=== PATIENT | female | born 1960 | race Caucasian/White ===

== ENCOUNTER 2017-04-28 13:34 | Emergency (ER) | payer BC, MEDICARE ==
[~2017-04-28] VITALS: Ht 152.4 cm; Wt 79.4 kg
[~2017-04-28 13:34] MED LIST: ALBUTEROL-200 PUFFS/ IH; ALBUTEROL2.5 MG/NEB IN; ALDACTONE25 MG PO; CLINDAMYCIN HC300 MG PO; EFFER-K20 MEQ PO; FLONASE 50 MCG16 GM; HYDROCHLOROTH12.5 M1 PO; K-DUR 2020 MEQ PO; KLOR-CON 1010 MEQ PO; LASIX 40MG. TAB40 MG PO; LASIX40 MG PO; LISINOPRIL5 MG PO; LORTAB 500 MG-11 TAB PO; MEDROL 4MG. DOSE4 MG PO; METOPROLOL SUCC25 M2 PO; METOPROLOL25 MG PO; MUCINEX DM1 TER PO; NEXIUM20 MG PO; NORCO 325 MG-101 TAB PO; NYSTATIN 1100000 UNI MT; NYSTATIN SU60 ML/BOT PO; OMNICEF 300 MG300 MG PO; PREDNICOT20 MG PO; PREDNISONE 20MG20 MG PO; SYMBICORT 10.10.2 ML IH; SYMBICORT1 AE1 IH; VENTOLIN H0.09 MG/AC IH; VICODIN 5/500 T1 TAB PO; ZYRTEC-D TABLE1 EACH PO; [UNRECOGNIZED DRUG - OTHER] PO
--- NOTE | 2017-04-28 14:06 | Emergency Room Report ---
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 PT REPORTS RIGHT ARM AND KNEE PAIN. 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 N Clinical Suspician of Infection? N Mental Status: 1 - Regular (Normal Baseline) Sepsis Risk:Possible Sepsis Risk Have you (or family members/close friends) recently traveled outside the [place]? N If Yes, where/when: Have you had exposure to infectious disease within the past month? N TB? Other? Specify: Source patient, RN notes reviewed, family, EMS, old records Exam Limitations no limitations Comment trip type fall with acute injury to wrist and knee with no loc or other c/o Cardiac Chest Pain Chest pain indicative of cardiac No Timing/Duration this evening Severity moderate ALLERGIES Coded Allergies: levofloxacin (From Levaquin) (Intermediate, I-RASH 01/12/17) NSAIDS (Non-Steroidal Anti-Inflamma (Mild, STOMACH PAIN 01/12/17) erythromycin base (Mild, STOMACH PAIN 01/12/17) amoxicillin (From AUGMENTIN) (I-HIVES 01/12/17) clavulanic acid (From AUGMENTIN) (I-HIVES 01/12/17) sulfamethoxazole (From SEPTRA) (I-HIVES 01/12/17) trimethoprim (From SEPTRA) (I-HIVES 01/12/17) Home Medications Reported Medications Esomeprazole Magnesium (Nexium) 20 MG PO DAILY Hydrochlorothiazide (Hydrochlorothiazide 12.5MG) 25 MG PO DAILY HYDROCODONE/ACETAMINOPHEN ([place] 10-325 Tablet) 1 TAB PO Q4HP PRN PAIN Furosemide (Lasix 40MG) 40 MG PO BID Potassium Chloride (K-Dur) 40 MEQ PO TID #120 GUAIFENESIN/DEXTROMETHORPHAN (Mucinex Dm ER 1,200-60 MG Tab) 1 TAB PO BID Metoprolol Succinate 25 MG PO QHS #30 Fluticasone Propionate (Flonase 50 Mcg Nasal [place]) 1 SPRAY NA BID #16 ALBUTEROL (Ventolin Hfa) 1 PUFF IH Q6H6 History Medical History General CAD? No Angina: Yes [place]: No Hypertension? Yes Hyperlipidemia? Yes CHF? Yes DVT? No PE? No COPD? Yes Asthma? Yes Anemia? No GERD? No Gastric ulcers? No GI Bleed? No Hernia? No Thyroid Problems? No Hypothyroidism? No CVA? No Seizures? No Diabetes? No Renal Insuffiency? No End Stage Renal Disease? No UTI? No Stones? No BPH? No GB Disease: No Nephritic Syndrome? No Asplenia? No Hepatitis? No Sickle Cell Disease? No Arthritis? Yes Migraines? No Cataracts? No Glaucoma? No MRSA? No HIV? No TB? No Anxiety? No Cancer? No Site: CERVIX More? 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 Respiratory denies cough, denies shortness of breath, denies wheezing Cardiovascular denies chest pain, denies palpitations, denies syncope Gastrointestinal denies abdominal pain, denies diarrhea, denies vomiting Genitourinary denies: dysuria, frequency, hesitancy, hematuria. Musculoskeletal see HPI, denies back pain, joint pain, joint swelling, denies neck pain Skin denies rash Psychiatric/Neurological denies headache, denies seizure Physical Exam Vital Signs Vital Signs Date Time Temp Pulse Resp B/P Pulse O2 O2 Flow FiO2 Ox Delivery Rate 04/28 1615 98.6 94 20 123/78 90 04/28 1444 93 20 118/81 92 04/28 1429 20 04/28 1335 99.2 92 20 129/79 92 2 - WBC >12,000 or <4,000 or 10% bands? 2 or more SIRS Criteria Met? B/P:123/78 MAP:95 Creatinine >2.0? UA output<0.5ml/kg/hr for 2 hrs? Platelet count >100,000? Lactate >2.0mmol/1? INR >1.2 or PTT > than 60 sec? Evidence of Organ Dysfunction? Provider documented clinical suspician of infection? N Sepsis Criteria Count: 2 Sepsis Risk: Possible Sepsis Risk General Appearance no apparent distress Eye Exam - bilateral eye PERRL, bilateral eye EOMI Ear, Nose, Throat normal ENT inspection Neck non-tender Respiratory Status No: respiratory distress. Cardiovascular regular rate/rhythm Peripheral Pulses Pulses normal Yes Gastrointestinal soft Extremities no calf tenderness, pelvis stable, swelling, deformity to rt wrist with neurovascular ok and knee with no gross deformity but has pain with wt bearing Strength 4 Upper Ext (L), 4 Upper Ext (R), 4 Lower Ext (L), 4 Lower Ext (R) Neurologic alert, sleep manager II-XII nml as tested, no motor/sensory deficits Reflexes Reflexes normal No Mental status normal mood/affect Skin intact Medical Decision Making LABS/Meds/Orders Pt receiving controlled substance in ED? No Results/Orders Current Medication Orders Sig/Kamaljit Start time Last Medication Dose Route Stop Time Status Admin Morphine Sulfate 4 MG 04/28 1430 CAN IV Morphine Sulfate 4 MG ONCE ONE 04/28 1430 DC 04/28 IV 04/28 1431 1429 Ondansetron HCl 4 MG ONCE ONE 04/28 1430 DC 04/28 IV 04/28 1431 1429 Morphine Sulfate 0 .STK-MED ONE 04/28 1418 DC .ROUTE Ondansetron HCl 0 .STK-MED ONE 04/28 1418 DC .ROUTE Sodium Chloride 10 ML PRN PRN 04/28 1415 AC IV 04/29 1406 Orders Procedure Date/time Status DIET-NOTHING BY MOUTH 04/[address] SCAN REQ 04/28 1443 Complete IV SALINE LOCK 04/28 1406 Active XRAY/CT/US XRAY/CT/US 1 XRAY forearm, knee, pelvis, wrist XR interpretation by reviewed by me Xray Results abnormal (wrist fx) XRAY/CT/US 2 CT other (wrist ) CT interpretation by discussed w/radiologist Time results known: 1622 CT Results abnormal (see report) Procedures Orthopedic/Inj/Splint IV Sedation Airway Assessment IV Sedation used? No Neck Extension: Normal Dentition: Intact Modified Mallampati Class: MP Class II ASA prior to sedation per Dr: Herminio Ortho Proc/Injections/Splints Risks/benefits discussed with pt/guardian? Yes IV conscious sedation No Post reduction xrays completed and anatomic No Hand-Made Type orthoglass Splint wrist Pre-Proc Neuro Vasc Exam normal Post-Proc Neuro Vasc Exam unchanged from pre-exam Complications none Departure Departure Time of Disposition 1624 Disposition DC Home or Self Care(routine) Clinical Impression Primary Impression: Wrist fracture, right Qualifiers: Encounter type: initial encounter Fracture type: closed Qualified Code: S62.101A - Fracture of unspecified carpal bone, right wrist, initial encounter for closed fracture Secondary Impressions: Right knee sprain Qualifiers: Encounter type: initial encounter Involved ligament of knee: unspecified ligament Qualified Code: S83.91XA - Sprain of unspecified site of right knee, initial encounter Condition STABLE Referrals Saul Fowler MD Patient Instructions DI for Wrist Fracture Additional Instructions call ortho in am and use meds as needed Discharge Counseling Counseled pt/family regarding diagnosis, test results, medications/RX, follow up needs Prescriptions Current Visit Scripts HYDROCODONE/ACETAMINOPHEN ([place] 5-325 Tablet) 1 TAB PO Q6HP PRN pain #10 TAB ED Critical Care Critical Care No at 1629
--- NOTE | 2017-04-28 14:06 | Emergency Room Report ---
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 PT REPORTS RIGHT ARM AND KNEE PAIN. 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 N Clinical Suspician of Infection? N Mental Status: 1 - Regular (Normal Baseline) Sepsis Risk:Possible Sepsis Risk Have you (or family members/close friends) recently traveled outside the [place]? N If Yes, where/when: Have you had exposure to infectious disease within the past month? N TB? Other? Specify: Source patient, RN notes reviewed, family, EMS, old records Exam Limitations no limitations Comment trip type fall with acute injury to wrist and knee with no loc or other c/o Cardiac Chest Pain Chest pain indicative of cardiac No Timing/Duration this evening Severity moderate ALLERGIES Coded Allergies: levofloxacin (From Levaquin) (Intermediate, I-RASH 01/12/17) NSAIDS (Non-Steroidal Anti-Inflamma (Mild, STOMACH PAIN 01/12/17) erythromycin base (Mild, STOMACH PAIN 01/12/17) amoxicillin (From AUGMENTIN) (I-HIVES 01/12/17) clavulanic acid (From AUGMENTIN) (I-HIVES 01/12/17) sulfamethoxazole (From SEPTRA) (I-HIVES 01/12/17) trimethoprim (From SEPTRA) (I-HIVES 01/12/17) Home Medications Reported Medications Esomeprazole Magnesium (Nexium) 20 MG PO DAILY Hydrochlorothiazide (Hydrochlorothiazide 12.5MG) 25 MG PO DAILY HYDROCODONE/ACETAMINOPHEN ([place] 10-325 Tablet) 1 TAB PO Q4HP PRN PAIN Furosemide (Lasix 40MG) 40 MG PO BID Potassium Chloride (K-Dur) 40 MEQ PO TID #120 GUAIFENESIN/DEXTROMETHORPHAN (Mucinex Dm ER 1,200-60 MG Tab) 1 TAB PO BID Metoprolol Succinate 25 MG PO QHS #30 Fluticasone Propionate (Flonase 50 Mcg Nasal [place]) 1 SPRAY NA BID #16 ALBUTEROL (Ventolin Hfa) 1 PUFF IH Q6H6 History Medical History General CAD? No Angina: Yes [place]: No Hypertension? Yes Hyperlipidemia? Yes CHF? Yes DVT? No PE? No COPD? Yes Asthma? Yes Anemia? No GERD? No Gastric ulcers? No GI Bleed? No Hernia? No Thyroid Problems? No Hypothyroidism? No CVA? No Seizures? No Diabetes? No Renal Insuffiency? No End Stage Renal Disease? No UTI? No Stones? No BPH? No GB Disease: No Nephritic Syndrome? No Asplenia? No Hepatitis? No Sickle Cell Disease? No Arthritis? Yes Migraines? No Cataracts? No Glaucoma? No MRSA? No HIV? No TB? No Anxiety? No Cancer? No Site: CERVIX More? 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 Respiratory denies cough, denies shortness of breath, denies wheezing Cardiovascular denies chest pain, denies palpitations, denies syncope Gastrointestinal denies abdominal pain, denies diarrhea, denies vomiting Genitourinary denies: dysuria, frequency, hesitancy, hematuria. Musculoskeletal see HPI, denies back pain, joint pain, joint swelling, denies neck pain Skin denies rash Psychiatric/Neurological denies headache, denies seizure Physical Exam Vital Signs Vital Signs Date Time Temp Pulse Resp B/P Pulse O2 O2 Flow FiO2 Ox Delivery Rate 04/28 1615 98.6 94 20 123/78 90 04/28 1444 93 20 118/81 92 04/28 1429 20 04/28 1335 99.2 92 20 129/79 92 2 - WBC >12,000 or <4,000 or 10% bands? 2 or more SIRS Criteria Met? B/P:123/78 MAP:95 Creatinine >2.0? UA output<0.5ml/kg/hr for 2 hrs? Platelet count >100,000? Lactate >2.0mmol/1? INR >1.2 or PTT > than 60 sec? Evidence of Organ Dysfunction? Provider documented clinical suspician of infection? N Sepsis Criteria Count: 2 Sepsis Risk: Possible Sepsis Risk General Appearance no apparent distress Eye Exam - bilateral eye PERRL, bilateral eye EOMI Ear, Nose, Throat normal ENT inspection Neck non-tender Respiratory Status No: respiratory distress. Cardiovascular regular rate/rhythm Peripheral Pulses Pulses normal Yes Gastrointestinal soft Extremities no calf tenderness, pelvis stable, swelling, deformity to rt wrist with neurovascular ok and knee with no gross deformity but has pain with wt bearing Strength 4 Upper Ext (L), 4 Upper Ext (R), 4 Lower Ext (L), 4 Lower Ext (R) Neurologic alert, weather anchor II-XII nml as tested, no motor/sensory deficits Reflexes Reflexes normal No Mental status normal mood/affect Skin intact Medical Decision Making LABS/Meds/Orders Pt receiving controlled substance in ED? No Results/Orders Current Medication Orders Sig/Kamaljit Start time Last Medication Dose Route Stop Time Status Admin Morphine Sulfate 4 MG 04/28 1430 CAN IV Morphine Sulfate 4 MG ONCE ONE 04/28 1430 DC 04/28 IV 04/28 1431 1429 Ondansetron HCl 4 MG ONCE ONE 04/28 1430 DC 04/28 IV 04/28 1431 1429 Morphine Sulfate 0 .STK-MED ONE 04/28 1418 DC .ROUTE Ondansetron HCl 0 .STK-MED ONE 04/28 1418 DC .ROUTE Sodium Chloride 10 ML PRN PRN 04/28 1415 AC IV 04/29 1406 Orders Procedure Date/time Status DIET-NOTHING BY MOUTH 04/[address] SCAN REQ 04/28 1443 Complete IV SALINE LOCK 04/28 1406 Active XRAY/CT/US XRAY/CT/US 1 XRAY forearm, knee, pelvis, wrist XR interpretation by reviewed by me Xray Results abnormal (wrist fx) XRAY/CT/US 2 CT other (wrist ) CT interpretation by discussed w/radiologist Time results known: 1622 CT Results abnormal (see report) Procedures Orthopedic/Inj/Splint IV Sedation Airway Assessment IV Sedation used? No Neck Extension: Normal Dentition: Intact Modified Mallampati Class: MP Class II ASA prior to sedation per Dr: Herminio Ortho Proc/Injections/Splints Risks/benefits discussed with pt/guardian? Yes IV conscious sedation No Post reduction xrays completed and anatomic No Hand-Made Type orthoglass Splint wrist Pre-Proc Neuro Vasc Exam normal Post-Proc Neuro Vasc Exam unchanged from pre-exam Complications none Departure Departure Time of Disposition 1624 Disposition DC Home or Self Care(routine) Clinical Impression Primary Impression: Wrist fracture, right Qualifiers: Encounter type: initial encounter Fracture type: closed Qualified Code: S62.101A - Fracture of unspecified carpal bone, right wrist, initial encounter for closed fracture Secondary Impressions: Right knee sprain Qualifiers: Encounter type: initial encounter Involved ligament of knee: unspecified ligament Qualified Code: S83.91XA - Sprain of unspecified site of right knee, initial encounter Condition STABLE Referrals Saul Fowler MD Patient Instructions DI for Wrist Fracture Additional Instructions call ortho in am and use meds as needed Discharge Counseling Counseled pt/family regarding diagnosis, test results, medications/RX, follow up needs Prescriptions Current Visit Scripts HYDROCODONE/ACETAMINOPHEN ([place] 5-325 Tablet) 1 TAB PO Q6HP PRN pain #10 TAB ED Critical Care Critical Care No at 1628
--- NOTE | 2017-04-28 14:43 | RADIOLOGY REPORT PS360 ---
KNEE-3 VIEWS-RT HISTORY: Post traumatic pain FALL ORDERING PHYSICIAN: Cole Ingram MD PATIENT AGE: 56 years COMPARISON: None FINDINGS: No fracture or dislocation. No lytic or blastic change. Normal mineralization. Minimal osteoarthritic changes are present at the medial compartment No other significant findings IMPRESSION: No acute finding
--- NOTE | 2017-04-28 15:07 | RADIOLOGY REPORT PS360 ---
FOREARM-RT HISTORY: Post traumatic pain and deformity FALL ORDERING PHYSICIAN: Cole Ingram MD PATIENT AGE: 56 years COMPARISON: None FINDINGS: Comminuted mildly displaced fracture involves the distal radius with mild impaction of fracture fragments. Reversed T-shaped fracture is present with a longitudinal component extending in the articular surface and mild widening of the distal fracture fragments. There is mild dorsal in relation the distal fracture fragment as well. The mid and proximal aspect of the aforementioned an unremarkable appearance IMPRESSION: Comminuted mildly displaced impacted distal radial fracture with intra-articular involvement
--- NOTE | 2017-04-28 15:17 | RADIOLOGY REPORT PS360 ---
WRIST-3 VIEWS-RT HISTORY: Posttraumatic pain fall ORDERING PHYSICIAN: Cole Ingram MD PATIENT AGE: 56 years COMPARISON: None FINDINGS: Comminuted mildly displaced fracture involves the distal radius with mild impaction of fracture fragments. Reversed T-shaped fracture is present with a longitudinal component extending in the articular surface and mild widening of the distal fracture fragments. There is mild dorsal angulation of the distal fracture fragment as well. A dorsal medial fragment is noted with a longitudinal component. This fragment is displaced dorsally by 2 to 3 mm. IMPRESSION: Comminuted mildly displaced impacted distal radial fracture with intra-articular involvement
--- NOTE | 2017-04-28 15:18 | RADIOLOGY REPORT PS360 ---
PELVIS AP ONLY HISTORY: Posttraumatic pain fall ORDERING PHYSICIAN: Cole Ingram MD PATIENT AGE: 56 years COMPARISON: None FINDINGS: No fracture or dislocation is evident. Osteoarthritic changes are present involving both hips slightly greater on the left. IMPRESSION: 1. No acute fracture. 2. Osteoarthritis of the hips
--- NOTE | 2017-04-28 15:23 | RADIOLOGY REPORT PS360 ---
CT EXT.UPPER-RT-W/O CONTRAST INDICATION: Posttraumatic pain with deformity, fracture evaluation FALL ORDERING PHYSICIAN: Cole Ingram MD PATIENT AGE: 56 years COMPARISON: None TECHNIQUE: Axial images are obtained without contrast. Sagittal and coronal and 3-D reformatted images are reviewed as well. FINDINGS: Comminuted fracture involves the distal radius with mild impaction of the fracture fragments. There is both transverse and longitudinal component. Longitudinal component is more toward the ulna. There is mild displacement of the fracture fragment located on the ulnar side of the distal radius displaced ulnarly x 3 mm. There is mild dorsal angulation of the distal fracture fragment. The dorsal and medial fracture fragments are comminuted. The distal radius and ulna relationship is maintained. Scaphoid and other bones of the wrist are unremarkable.. IMPRESSION: Impacted mildly displaced comminuted distal radial fracture as described above
[2017-04-28] MEDS ORDERED: NORCO 325 MG-51 TAB PO (16:26)
[2017-04-28 16:55] VITALS: BP 120/70
--- OUTSIDE RECORDS SUMMARY | 2017-04-29 15:14 | External Medical Summary Rpt ---
Demographics Preferred Language Hebrew Marital Status Unknown Church Affiliation Unknown Race Unknown Ethnic Group Unknown Author Author , SARA RUIZ Address Unknown Phone Immunization Unable to retrieve immunization data due to connection failure with Immunization Registry. Please try again later.
--- OUTSIDE RECORDS SUMMARY | 2017-04-29 15:14 | External Medical Summary Rpt ---
Author Author SARA Address Unknown Phone [email or web address] Purpose Continuity of Care Document - through 2016
--- OUTSIDE RECORDS SUMMARY | 2017-04-29 15:14 | External Medical Summary Rpt ---
Author Author SARA Address Unknown Phone [email or web address] Purpose Continuity of Care Document - through 2016
--- OUTSIDE RECORDS SUMMARY | 2017-04-29 15:14 | External Medical Summary Rpt ---
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 Name Role Phone Dionisio Schofield MD, Unavailable Unavailable Dionisio Schofield MD Purpose Continuity of Care Document - 09-18-2013 through 2016 Problems Code Diagnosis DOS Provider Status 305.1 305.1 09-21-2013 [place] TOBACCO USE [facility] [phone] 09-21-2013 [place] PNEUMOCOCCA [facility] PNEUMONIA [facility] [STREPTOCOC CUS PNEUMONIAE] 491.21 491.21 09-21-2013 [facility] BRONCHITIS, W (ACUTE) EXACERBATIO N 737.10 737.10 09-21-2013 [place] KYPHOSIS [facility] V14.8 V14.8 09-21-2013 [place] HX-DRUG [facility] ALLERGY [facility] Allergies, Adverse Reactions, Alerts Type Drug Allergy Adverse Reaction to Substance Substance Reaction Severity Nsaid STOMACH PAIN Unknown Steroid HURTS STOMACH Unknown Erythromycin STOMACH PAIN Unknown Levofloxacin I-RASH Intermediate Medications Na ND Rx Da Fi Fi Am Da Di Ph RX Ph St me C No te ll ll ou ys ag ar # ys at rm s nt no ma ic us Or Da si cy ia de te s n re d SO 00 01 1 No MILEY 00 -0 -M 90 1- Lo ED 04 20 ng RO 72 14 er L 2 12 Ac 5 ti MG ve AL AZ 68 01 1 No IT 08 -0 HR 40 1- Lo OM 27 20 ng YC 80 14 er IN 1 Ac 25 ti 0 ve MG TA BL ET NI 00 12 2 No CO 06 -3 TI 75 1- Lo NE 12 20 ng 61 13 er 21 4 Ac MG ti /2 ve 4H R PA TC H PA 51 12 2 No NT 07 -3 OP 90 1- Lo RA 05 20 ng ZO 12 13 er LE 0 Ac SO ti D ve DR 40 MG TA B CE 00 12 1 No FT 40 -3 RI 97 1- Lo AX 33 20 ng ON 30 13 er E 4 1 Ac GM ti ve AL SO 00 12 1 No DI 40 -3 UM 97 1- Lo 10 20 ng CH 16 13 er LO 6 RI Ac DE ti ve 0. 9% SO LN HY [address] 40 -3 OC 60 1- Lo OD 36 20 ng ON 76 13 er -A 2 CE Ac TA ti RI ve NO PH N 10 -3 25 CE 00 12 1 No FT 40 -3 RI 97 0- Lo AX 33 20 ng ON 30 13 er E 4 1 Ac GM ti ve AL SO 00 12 1 No DI 40 -3 UM 97 0- Lo 10 20 ng CH 16 13 er LO 6 RI Ac DE ti ve 0. 9% SO LN AZ 00 12 2 No IT 40 -3 HR 90 0- Lo OM 14 20 ng YC 41 13 er IN 1 Ac I. ti V. ve 50 0 MG AL MA 00 12 2 No PA 90 -3 P 41 0- Lo 32 98 20 ng 5 26 13 er MG 1 Ac TA ti BL ve ET 00 12 3 No AI 12 -3 FE 10 0- Lo NE 63 20 ng SI 81 13 er N 0 DM Ac ti SY ve RU P LO 00 12 3 No VE 07 -3 NO 50 0- Lo X 62 20 ng 40 04 13 er 1 MG Ac /0 ti .4 ve ML SY RI NG E HY [address] 40 -3 OC 60 0- Lo OD 36 20 ng ON 76 13 er -A 2 CE Ac TA ti RI ve NO PH N 10 -3 25 IP 00 12 3 No RA 48 -3 T- 70 0- Lo AL 20 20 ng BU 10 13 er T 1 0. Ac 5- ti 3( ve 2. 5) MG /3 ML AD 00 12 3 No VA 17 -3 IR 30 0- Lo 69 20 ng 25 60 13 er 0- 4 50 Ac ti DI ve SK US Vital Signs 09-21-2013 08:49 Name Value Interpretat Reference Comment ion Range Body 97.7 [degF] Temperature BP 76 mm[Hg] Diastolic BP Systolic 132 mm[Hg] Heart 109 /min Rate/Pulse Respiratory 20 /min Rate 09-21-2013 Name Value Interpretat Reference Comment ion Range O2% 97 % 09-18-2013 19:45 Name Value Interpretat Reference Comment ion Range O2% 94 % 09-18-2013 17:00 Name Value Interpretat Reference Comment ion Range Body 99.5 [degF] Temperature BP 72 mm[Hg] Diastolic BP Systolic 124 mm[Hg] Heart 114 /min Rate/Pulse Height 152.40 cm Respiratory 20 /min Rate Weight 134 [lb_av] Measured Weight 60.839 kg Measured Results Labs Lab Lab Date Result Refere Interp Status Commen Order Detail nces retati t Range on Differential panel, method unspecified - (02-10-2017 06:00) LYMPH 9 % 10% - Low complet 017 50% ed 06:00 Platele NORMAL complet ts 017 ed [Presen 06:00 ce] in Blood by Light microsc opy Gas panel in Arterial blood (02-08-2017 14:42) Arteria ACCEPTA complet l 017 BLE ed patency 14:42 Wrist artery --pre arteria l punctur e SOURCE RIGHT complet 017 RADIAL ed 14:42 Differential panel, method unspecified - (02-08-2017 14:25) LYMPH 16 % 10% - Normal complet 017 50% ed 14:25 Platele NORMAL complet ts 017 ed [Presen 14:25 ce] in Blood by Light microsc opy Erythro NORMAL complet cyte 017 ed morphol 14:25 ogy finding [Identi fier] in Blood CBC with AUTO DIFF (09-19-2013 05:34) WBC # 09-19- 12.5 4.8-10. complet Bld 013 K/MM3 8 ed Auto 05:34 RBC # 4.01 4.2-5.4 complet Bld 013 M/mm3 ed Auto 05:34 Hgb 12.9 12.2-16 complet Bld-mCn 013 g/dL .2 ed c 05:34 Hct Fr 37.9 % 37.0-47 complet Bld 013 .0 ed 05:34 MCV RBC 94.5 fl 82.2-97 complet 013 .8 ed 05:34 MCH RBC 32.3 pg 27-31.2 complet Qn 013 ed Auto 05:34 MEAN 34.1 31.8-35 complet CORPUSC 013 g/dl .4 ed ULAR 05:34 HGB CONC RDW RBC -31-2 13.3 % 11.5-17 complet Auto 013 .5 ed 05:34 Platele 12-31-2 173 142-424 complet t Bld 013 K/mm3 ed Ql 05:34 Manual MEAN 31-2 7.3 fl 7.4-10. complet PLATELE 013 4 ed T 05:34 VOLUME Granulo -31-2 89.1 % 37.0-80 complet cytes 013 .0 ed Fr Bld 05:34 Auto LYMPH % 12-31-2 7.3 % 10-50.0 complet 013 ed 05:34 Monocyt 12-31-2 2.5 % 1.7-9.3 complet es Fr 013 ed Bld 05:34 Auto Eosinop -31-2 0.9 % 0.1-12. complet hil Fr 013 0 ed Bld 05:34 Auto Basophi 12-31-2 0.1 % 0.1-2.0 complet ls Fr 013 ed Bld 05:34 Auto Granulo -31-2 11.2 1.8-7.8 complet cytes # 013 K/mm3 ed Bld 05:34 Auto Lymphoc 12-31-2 0.9 0.7-4.5 complet ytes Fr 013 K/mm3 ed Bld 05:34 Auto Monocyt 12-31-2 0.3 0.1-1.0 complet es # 013 K/mm3 ed Bld 05:34 Auto Eosinop 12-31-2 0.1 0.0-0.4 complet hil # 013 K/mm3 ed Bld 05:34 Auto Basophi 12-31-2 0.0 0-0.2 complet ls # 013 K/MM3 ed Bld 05:34 Auto BASIC METABOLIC PANEL (09-18-2013 17:55) Glucose 09-18- 97 74-106 complet 013 mg/dL ed Bld-mCn 17:55 c BUN 09-18-2 15 7-18 complet Bld-mCn 013 mg/dL ed c 17:55 Creat 09-18-2 0.8 0.6-1.0 complet SerPl-m 013 mg/dL ed Cnc 17:55 Creat 09-18-2 79 50-200 complet Cl 013 ML/MIN ed predict 17:55 ed SerPl C-G-vRa te GFR/BSA 75 59- complet .pred 013 ML/MIN ed SerPl 17:55 Schwart z-vRate Sodium 138 136-145 complet SerPl-s 013 mmoL/L ed Cnc 17:55 Potassi 3.4 3.5-5.1 complet um 013 mmoL/L ed SerPl-s 17:55 Cnc Chlorid 96 98-107 complet e 013 mmoL/L ed SerPl-s 17:55 Cnc CO2 32 21.0-32 complet SerPl-s 013 mmoL/L .0 ed Cnc 17:55 Calcium 8.9 8.5-10. complet 013 mg/dL 1 ed SerPl-m 17:55 Cnc CBC with AUTO DIFF (09-18-2013 17:55) WBC # 09-18-2 19.1 4.8-10. complet Bld 013 K/MM3 8 ed Auto 17:55 RBC # 09-18-2 5.05 4.2-5.4 complet Bld 013 M/mm3 ed Auto 17:55 Hgb 16.3 12.2-16 complet Bld-mCn 013 g/dL .2 ed c 17:55 Hct Fr 48.4 % 37.0-47 complet Bld 013 .0 ed 17:55 MCV RBC 95.9 fl 82.2-97 complet 013 .8 ed 17:55 MCH RBC 32.2 pg 27-31.2 complet Qn 013 ed Auto 17:55 MEAN 33.6 31.8-35 complet CORPUSC 013 g/dl .4 ed ULAR 17:55 HGB CONC RDW RBC 09-18-2 13.6 % 11.5-17 complet Auto 013 .5 ed 17:55 Platele 203 142-424 complet t Bld 013 K/mm3 ed Ql 17:55 Manual MEAN 7.7 fl 7.4-10. complet PLATELE 013 4 ed T 17:55 VOLUME Granulo 90.5 % 37.0-80 complet cytes 013 .0 ed Fr Bld 17:55 Auto LYMPH % 12-30-2 6.5 % 10-50.0 complet 013 ed 17:55 Monocyt 12-30-2 2.7 % 1.7-9.3 complet es Fr 013 ed Bld 17:55 Auto Eosinop 12-30-2 0.0 % 0.1-12. complet hil Fr 013 0 ed Bld 17:55 Auto Basophi 12-30-2 0.2 % 0.1-2.0 complet ls Fr 013 ed Bld 17:55 Auto Granulo -30-2 17.2 1.8-7.8 complet cytes # 013 K/mm3 ed Bld 17:55 Auto Lymphoc 12-30-2 1.3 0.7-4.5 complet ytes Fr 013 K/mm3 ed Bld 17:55 Auto Monocyt -30-2 0.5 0.1-1.0 complet es # 013 K/mm3 ed Bld 17:55 Auto Eosinop 12-30-2 0.0 0.0-0.4 complet hil # 013 K/mm3 ed Bld 17:55 Auto Basophi 12-30-2 0.0 0-0.2 complet ls # 013 K/MM3 ed Bld 17:55 Auto MYCOPLASMA IGM (RAPID) (09-18-2013 17:55) MYCOPLA -30-2 NON-DENNY NONREAC complet SMA IGM 013 CTIVE TIVE ed 17:55 (RAPID) Encounters Encounter Start End Date Code Location Performer Type Date Inpatient IMP (IN) 3 15:41 4 09:55
--- OUTSIDE RECORDS SUMMARY | 2017-04-29 15:14 | External Medical Summary Rpt ---
Demographics Preferred Language Maltese Marital Status Unknown Uatsdin Affiliation Unknown Race Unknown Ethnic Group Unknown Author Author , SARA RUIZ Address Unknown Phone Immunization Unable to retrieve immunization data due to connection failure with Immunization Registry. Please try again later.
--- OUTSIDE RECORDS SUMMARY | 2017-04-29 15:14 | External Medical Summary Rpt ---
Author Author , SARA RUIZ Address Unknown Phone [email or web address] 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 Name Role Phone Dionisio Schofield MD, Unavailable Unavailable Dionisio Schofield MD Purpose Continuity of Care Document - 09-18-2013 through 2016 Problems Code Diagnosis DOS Provider Status 305.1 305.1 09-21-2013 [place] TOBACCO USE [facility] 481 481 09-21-2013 [place] PNEUMOCOCCA [facility] PNEUMONIA [facility] [STREPTOCOC CUS PNEUMONIAE] 491.21 491.21 09-21-2013 [facility] BRONCHITIS, W (ACUTE) EXACERBATIO N 737.10 737.10 09-21-2013 [place] KYPHOSIS [facility] V14.8 V14.8 09-21-2013 [place] HX-DRUG [facility] ALLERGY [facility] Allergies, Adverse Reactions, Alerts Type Drug Allergy [...] er -A 2 CE Ac TA ti ID ve NO PH N 10 -3 25 [...] er -A 2 CE Ac TA ti ID ve NO PH N 10 -3 25 [...]
--- OUTSIDE RECORDS SUMMARY | 2017-04-29 15:15 | External Medical Summary Rpt ---
Author Author SARA Lopes, [employer] Organization [employer] Address Unknown Phone Unavailable Results Comprehensive metabolic 2000 panel in Serum or Plasma Observa Value Referen Units Interpr Notes Date tion ce etation Range Albumin/G 1.1 - 1.8 No Normal No Apr 26 lobulin informati informati 2016 8:33 [Mass on in on in AM ratio] in source source Serum or data data Plasma Albumin 3.4 - 5.0 gm/dL Normal No Apr 26 [Mass/vol informati 2016 8:33 ume] in on in AM Serum or source Plasma data Alkaline 46 - 116 U/L Normal No Apr 26 phosphata informati 2016 8:33 se on in AM [Enzymati source c data activity/ volume] in Serum or Plasma Bilirubin 0.2 - 1.0 mg/dL Normal No Apr 26 .total informati 2016 8:33 [Mass/vol on in AM ume] in source Serum or data Plasma Urea 7 - 18 mg/dL High No Apr 26 nitrogen informati 2016 8:33 [Mass/vol on in AM ume] in source Serum or data Plasma Calcium 8.5 - mg/dL Normal No Apr 26 [Mass/vol 10.1 informati 2017 8:33 ume] in on in AM Serum or source Plasma data Chloride 98 - 107 mmoL/L Normal No Apr 26 [Moles/vo informati 2017 8:33 lume] in on in AM Serum or source Plasma data Carbon 21.0 - mmoL/L High No Apr 26 dioxide, 32.0 informati 2017 8:33 total on in AM [Moles/vo source lume] in data Serum or Plasma Creatinin 0.55 - mg/dL Low No Apr 26 e 1.02 informati 2016 8:33 [Mass/vol on in AM ume] in source Serum or data Plasma Estimated 59- ML/MIN No REFERENCE Apr 26 informati RANGE: 2017 8:33 glomerula on in >60 AM r source ML/MIN/1. filtratio data 73 SQUARE n rate METERSIf (GF this patient is -A merican, then multiply theresult by 1.210. Globulin 1.3 - 3.2 gm/dL Normal No Apr 26 [Mass/vol informati 2016 8:33 ume] in on in AM Serum source data Glucose 74 - 106 mg/dL Normal No Apr 26 [Mass/vol informati 2016 8:33 ume] in on in AM Serum or source Plasma data Potassium 3.5 - 5.1 mmoL/L Normal No Apr 26 informati 2016 8:33 [Moles/vo on in AM lume] in source Serum or data Plasma Sodium 136 - 145 mmoL/L Normal No Apr 26 [Moles/vo informati 2016 8:33 lume] in on in AM Serum or source Plasma data Aspartate 15 - 37 U/L Normal No Apr 26 informati 2016 8:33 aminotran on in AM sferase source [Enzymati data c activity/ volume] in Serum or Plasma Alanine 12 - 78 U/L Normal No Apr 26 aminotran informati 2016 8:33 sferase on in AM [Enzymati source c data activity/ volume] in Serum or Plasma Protein 6.4 - 8.2 gm/dL Normal No Apr 26 [Mass/vol informati 2016 8:33 ume] in on in AM Serum or source Plasma data Lipid 1996 panel in Serum or Plasma Observa Value Referen Units Interpr Notes Date tion ce etation Range Cholester < 200 mg/dL No No Apr 26 ol informati informati 2016 8:33 [Moles/vo on in on in AM lume] in source source Unspecifi data data ed specimen Cholester 40 - 60 MG/DL High No Apr 26 ol in HDL informati 2016 8:33 on in AM [Mass/vol source ume] in data Serum or Plasma Cholester 0 - 130 mg/dL Normal No Apr 26 ol in LDL informati 2016 8:33 on in AM [Mass/vol source ume] in data Serum or Plasma by jg on Triglycer 30 - 200 mg/dL Normal No Apr 26 dejan ati 2016 8:33 [Moles/vo on in AM lume] in source Serum or data Plasma Cholester 0 - 40 No Normal No Apr 26 ol in informati informati 2016 8:33 VLDL on in on in AM [Mass/vol source source ume] in data data Serum or Plasma CBC W Auto Differential panel in Blood Observa Value Referen Units Interpr Notes Date tion ce etation Range Basophils 0 - 0.2 K/MM3 Normal No Apr 26 informati 2016 8:33 [#/volume on in AM ] in source Blood by data Automated count Basophils 0.1 - 2.0 % Normal No Apr 26 /100 informati 2017 8:33 leukocyte on in AM s in source Blood by data Automated count Eosinophi 0.0 - 0.4 K/mm3 Normal No Apr 26 ls informati 2016 8:33 [#/volume on in AM ] in source Blood by data Automated count Eosinophi 0.1 - % Normal No Apr 26 ls/100 12.0 informati 2017 8:33 leukocyte on in AM s in source Blood by data Automated count Granulocy 1.8 - 7.8 K/mm3 Normal No Apr 26 jazzy informati 2017 8:33 [#/volume on in AM ] in source Blood by data Automated count Granulocy 37.0 - % Normal No Apr 26 jazzy/100 80.0 informati 2016 8:33 leukocyte on in AM s in source Blood by data Automated count Hematocri 37.0 - % Normal No Apr 26 t [Volume 47.0 informati 2017 8:33 on in AM Fraction] source of Blood data Hemoglobi 12.2 - g/dL Normal No Apr 26 n 16.2 informati 2017 8:33 [Mass/vol on in AM ume] in source Blood data Lymphocyt 0.7 - 4.5 K/mm3 Normal No Apr 26 es informati 2017 8:33 [#/volume on in AM ] in source Unspecifi data ed specimen by Automated count Lymphocyt 10 - 50.0 % Normal No Apr 26 es informati 2016 8:33 [#/volume on in AM ] in source Unspecifi data ed specimen by Automated count Erythrocy 27 - 31.2 pg Normal No Apr 26 te mean informati 2017 8:33 corpuscul on in AM ar source hemoglobi data n [Entitic mass] Erythrocy 31.8 - g/dl Normal No Apr 26 te mean 35.4 informati 2017 8:33 corpuscul on in AM ar source hemoglobi data n concentra tion [Mass/vol ume] by Automated count Erythrocy 82.2 - fl Normal No Apr 26 te mean 97.8 informati 2016 8:33 corpuscul on in AM ar volume source [Entitic data volume] by Automated count Monocytes 0.1 - 1.0 K/mm3 Normal No Apr 26 informati 2016 8:33 [#/volume on in AM ] in source Blood by data Automated count Monocytes 1.7 - 9.3 % Normal No Apr 26 informati 2016 8:33 leukocyte on in AM s in source Blood by data Automated count Platelet 7.4 - fl Low No Apr 26 mean 10.4 informati 2016 8:33 volume on in AM [Entitic source volume] data in Blood by Automated count Platelets 142 - 424 K/mm3 Normal No Apr 26 inform2016 8:33 [#/volume on in AM ] in source Blood data Erythrocy 4.2 - 5.4 M/mm3 Normal No Apr 26 jazzy informati 2016 8:33 [#/volume on in AM ] in source Amniotic data fluid Erythrocy 11.5 - % Normal No Apr 26 te 17.5 informati 2016 8:33 distribut on in AM ion width source [Entitic data volume] by Automated count Leukocyte 4.8 - K/MM3 Normal No Apr 26 s 10.8 informati 2016 8:33 [#/volume on in AM ] in source Blood data CBC W Auto Differential panel in Blood Observa Value Referen Units Interpr Notes Date tion ce etation Range Basophils 0 - 0.2 K/MM3 Normal No February 10ati 2016 6:00 [#/volume on in AM ] in source Blood by data Automated count Basophils 0.1 - 2.0 % Low No February 10 informati 2016 6:00 leukocyte on in AM s in source Blood by data Automated count Eosinophi 0.0 - 0.4 K/mm3 Normal No February 10 ls informati 2016 6:00 [#/volume on in AM ] in source Blood by data Automated count Eosinophi 0.1 - % Normal No February 10 ls/100 12.0 informati 2016 6:00 leukocyte on in AM s in source Blood by data Automated count Granulocy 1.8 - 7.8 K/mm3 High No February 10 jazzy informati 2016 6:00 [#/volume on in AM ] in source Blood by data Automated count Granulocy 37.0 - % High No February 10 jazzy100 80.0 informati 2016 6:00 leukocyte on in AM s in source Blood by data Automated count Hematocri 37.0 - % Normal No February 10 t [Volume 47.0 informati 2016 6:00 on in AM Fraction] source of Blood data Hemoglobi 12.2 - g/dL Normal No February 10 n 16.2 informati 2016 6:00 [Mass/vol on in AM ume] in source Blood data Lymphocyt 0.7 - 4.5 K/mm3 Normal No February 10 es informati 2016 6:00 [#/volume on in AM ] in source Unspecifi data ed specimen by Automated count Lymphocyt 10 - 50.0 % Low No February 10 es informati 2016 6:00 [#/volume on in AM ] in source Unspecifi data ed specimen by Automated count Erythrocy 27 - 31.2 pg Normal No February 10 te mean informati 2016 6:00 corpuscul on in AM ar source hemoglobi data n [Entitic mass] Erythrocy 31.8 - g/dl Normal No February 10 te mean 35.4 informati 2016 6:00 corpuscul on in AM ar source hemoglobi data n concentra tion [Mass/vol ume] by Automated count Erythrocy 82.2 - fl Normal No February 10 te mean 97.8 informati 2016 6:00 corpuscul on in AM ar volume source [Entitic data volume] by Automated count Monocytes 0.1 - 1.0 K/mm3 Normal No February 10 informati 2016 6:00 [#/volume on in AM ] in source Blood by data Automated count Monocytes 1.7 - 9.3 % Normal No February 10 /100 informati 2016 6:00 leukocyte on in AM s in source Blood by data Automated count Platelet 7.4 - fl Low No February 10 mean 10.4 informati 2016 6:00 volume on in AM [Entitic source volume] data in Blood by Automated count Platelets 142 - 424 K/mm3 Normal No February 10 informati 2016 6:00 [#/volume on in AM ] in source Blood data Erythrocy 4.2 - 5.4 M/mm3 Low No February 10 jazzy informati 2016 6:00 [#/volume on in AM ] in source Amniotic data fluid Erythrocy 11.5 - % Normal No February 10 te 17.5 informati 2016 6:00 distribut on in AM ion width source [Entitic data volume] by Automated count Leukocyte 4.8 - K/MM3 No February 10 s 10.8 informati informati 2017 6:00 [#/volume on in on in AM ] in source source Blood data data Differential panel, method unspecified - Observa Value Referen Units Interpr Notes Date tion ce etation Range LYMPH 9 10 - 50 % Low No February 10 inform2016 tion in 6:00 AM source data Monocytes 2 - 9 % Normal No February 10 /100 informati 2016 6:00 leukocyte on in AM s in source Blood by data Automated count Platele NORMAL No No No No February 10 ts informa informa informa informa 2016 [Presen tion in tion in tion in tion in 6:00 AM ce] in source source source source Blood data data data data by Light microsc opy Neutrophi 42 - 76 % High No February 10 ls informati 2016 6:00 [#/volume on in AM ] in source Blood by data Automated count Cells No #CELLS No No February 10 Counted informati informati informati 2016 6:00 Total [#] on in on in on in AM in Blood source source source data data data Basic metabolic panel in Blood Observa Value Referen Units Interpr Notes Date ti etation Range Urea 7 - 18 mg/dL Normal No February 10 nitrogen informati 2016 6:00 [Mass/vol on in AM ume] in source Serum or data Plasma Calcium 8.5 - mg/dL Normal No February 10 [Mass/vol 10.1 informati 2016 6:00 ume] in on in AM Serum or source Plasma data Chloride 98 - 107 mmoL/L Normal No February 10 [Moles/vo informati 2016 6:00 lume] in on in AM Serum or source Plasma data Carbon 21.0 - mmoL/L Normal No February 10 dioxide, 32.0 informati 2016 6:00 total on in AM [Moles/vo source lume] in data Serum or Plasma Creatinin 0.55 - mg/dL Low No February 10 e 1.02 informati 2016 6:00 [Mass/vol on in AM ume] in source Serum or data Plasma Creatinin 50 - 200 ML/MIN Normal No February 10 e renal informati 2016 6:00 clearance on in AM source predicted data by Cockcroft -Gault formula Estimated 59- ML/MIN No REFERENCE February 10 informati RANGE: 2017 6:00 glomerula on in >60 AM r source ML/MIN/1. filtratio data 73 SQUARE n rate METERSIf (GF this patient is -A merican, then multiply theresult by 1.210. Glucose 74 - 106 mg/dL High No February 10 [Mass/vol informati 2016 6:00 ume] in on in AM Serum or source Plasma data Potassium 3.5 - 5.1 mmoL/L Normal No February 10 inform2016 6:00 [Moles/vo on in AM lume] in source Serum or data Plasma Sodium 136 - 145 mmoL/L Normal No February 10 [Moles/vo informati 2016 6:00 lume] in on in AM Serum or source Plasma data CBC W Auto Differential panel in Blood Observa Value Referen Units Interpr Notes Date tion ce etation Range Basophils 0 - 0.2 K/MM3 Normal No February 09 informati 2016 5:15 [#/volume on in AM ] in source Blood by data Automated count Basophils 0.1 - 2.0 % Normal No February 09 informati 2016 5:15 leukocyte on in AM s in source Blood by data Automated count Eosinophi 0.0 - 0.4 K/mm3 Normal No February 09 ls informati 2016 5:15 [#/volume on in AM ] in source Blood by data Automated count Eosinophi 0.1 - % Normal No February 09 ls/100 12.0 informati 2016 5:15 leukocyte on in AM s in source Blood by data Automated count Granulocy 1.8 - 7.8 K/mm3 Normal No February 09 jazzy informati 2016 5:15 [#/volume on in AM ] in source Blood by data Automated count Granulocy 37.0 - % High No February 09 jazzy/100 80.0 informati 2016 5:15 leukocyte on in AM s in source Blood by data Automated count Hematocri 37.0 - % Normal No February 09 t [Volume 47.0 informati 2016 5:15 on in AM Fraction] source of Blood data Hemoglobi 12.2 - g/dL Normal No February 09 n 16.2 informati 2016 5:15 [Mass/vol on in AM ume] in source Blood data Lymphocyt 0.7 - 4.5 K/mm3 Normal No February 09 es informati 2016 5:15 [#/volume on in AM ] in source Unspecifi data ed specimen by Automated count Lymphocyt 10 - 50.0 % Normal No February 09 es informati 2016 5:15 [#/volume on in AM ] in source Unspecifi data ed specimen by Automated count Erythrocy 27 - 31.2 pg High No February 09 te mean inform2016 5:15 corpuscul on in AM ar source hemoglobi data n [Entitic mass] Erythrocy 31.8 - g/dl Normal No February 09 te mean 35.4 informati 2016 5:15 corpuscul on in AM ar source hemoglobi data n concentra tion [Mass/vol ume] by Automated count Erythrocy 82.2 - fl Normal No February 09 te mean 97.8 informati 2016 5:15 corpuscul on in AM ar volume source [Entitic data volume] by Automated count Monocytes 0.1 - 1.0 K/mm3 Normal No February 09 inform2016 5:15 [#/volume on in AM ] in source Blood by data Automated count Monocytes 1.7 - 9.3 % Low No February 09 /100 informati 2016 5:15 leukocyte on in AM s in source Blood by data Automated count Platelet 7.4 - fl Low No February 09 mean 10.4 informati 2016 5:15 volume on in AM [Entitic source volume] data in Blood by Automated count Platelets 142 - 424 K/mm3 Normal No February 09 informati 2016 5:15 [#/volume on in AM ] in source Blood data Erythrocy 4.2 - 5.4 M/mm3 Low No February 09 jazzy informati 2016 5:15 [#/volume on in AM ] in source Amniotic data fluid Erythrocy 11.5 - % Normal No February 09 te 17.5 informati 2016 5:15 distribut on in AM ion width source [Entitic data volume] by Automated count Leukocyte 4.8 - K/MM3 No February 09 s 10.8 informati informati 2016 5:15 [#/volume on in on in AM ] in source source Blood data data Basic metabolic panel in Blood Observa Value Referen Units Interpr Notes Date tion ce etation Range Urea 7 - 18 mg/dL Normal No February 09 nitrogen informati 2016 5:15 [Mass/vol on in AM ume] in source Serum or data Plasma Calcium 8.5 - mg/dL Normal No February 09 [Mass/vol 10.1 informati 2016 5:15 ume] in on in AM Serum or source Plasma data Chloride 98 - 107 mmoL/L Normal No February 09 [Moles/vo informati 2016 5:15 lume] in on in AM Serum or source Plasma data Carbon 21.0 - mmoL/L High No February 09 dioxide, 32.0 informati 2016 5:15 total on in AM [Moles/vo source lume] in data Serum or Plasma Creatinin 0.55 - mg/dL Low No February 09 e 1.02 informati 2016 5:15 [Mass/vol on in AM ume] in source Serum or data Plasma Creatinin 50 - 200 ML/MIN No No February 09 e renal informati informati 2016 5:15 clearance on in on in AM source source predicted data data by Cockcroft -Gault formula Estimated 59- ML/MIN No REFERENCE February 09 informati RANGE: 2016 5:15 glomerula on in >60 AM r source ML/MIN/1. filtratio data 73 SQUARE n rate METERSIf (GF this patient is -A merican, then multiply theresult by 1.210. Glucose 74 - 106 mg/dL High No February 09 [Mass/vol informati 2016 5:15 ume] in on in AM Serum or source Plasma data Potassium 3.5 - 5.1 mmoL/L Normal No February 09 informati 2016 5:15 [Moles/vo on in AM lume] in source Serum or data Plasma Sodium 136 - 145 mmoL/L Normal No February 09 [Moles/vo informati 2016 5:15 lume] in on in AM Serum or source Plasma data Gas panel in Arterial blood Observa Value Referen Units Interpr Notes Date tion ce etation Range Base -2.4-+2.3 MMOL/L High No February 08 excess in informati 2016 2:42 Arterial on in PM blood source data Arteria ACCEPTA No No No No February 08 l BLE informa informa informa informa 2017 patency tion in tion in tion in tion in 2:42 PM Wrist source source source source artery data data data data --pre arteria l punctur e Bicarbona 22.0 - MMOL/L High No February 08 te 26.0 informati 2016 2:42 [Moles/vo on in PM lume] in source Arterial data blood Oxygen No No No No February 08 content informati informati informati informati 2016 2:42 in on in on in on in on in PM Arterial source source source source blood data data data data Carbon 35.0 - MMHG Normal No February 08 dioxide 45.0 informati 2016 2:42 [Partial on in PM pressure] source in data Arterial blood pH of 7.35 - MMOL/L High No February 08 Arterial 7.45 informati 2016 2:42 blood on in PM source data Oxygen 80 - 100 MMHG Low No February 08 [Partial informati 2016 2:42 pressure] on in PM in source Arterial data blood Oxygen 90 - 100 % Normal No February 08 saturatio informati 2016 2:42 n.calcula on in PM rick from source oxygen data partial pressure in Arterial blood SOURCE RIGHT No No No No February 08 RADIAL informa informa informa informa 2016 tion in tion in tion in tion in 2:42 PM source source source source data data data data Carbon 23 - 27 MMOL/L High No February 08 dioxide, informati 2016 2:42 total on in PM [Moles/vo source lume] in data Arterial blood CBC W Auto Differential panel in Blood Observa Value Referen Units Interpr Notes Date tion ce etation Range Basophils 0 - 0.2 K/MM3 Normal No February 08 informati 2016 2:25 [#/volume on in PM ] in source Blood by data Automated count Basophils 0.1 - 2.0 % Normal No February 08 / informati 2016 2:25 leukocyte on in PM s in source Blood by data Automated count Eosinophi 0.0 - 0.4 K/mm3 Normal No February 08 ls informati 2016 2:25 [#/volume on in PM ] in source Blood by data Automated count Eosinophi 0.1 - % Normal February 08 ls/100 12.0 informati 2016 2:25 leukocyte on in PM s in source Blood by data Automated count Granulocy 1.8 - 7.8 K/mm3 High No February 08 jazzy informati 2016 2:25 [#/volume on in PM ] in source Blood by data Automated count Granulocy 37.0 - % High No February 08 jazzy/100 80.0 informati 2016 2:25 leukocyte on in PM s in source Blood by data Automated count Hematocri 37.0 - % Normal No February 08 t [Volume 47.0 informati 2016 2:25 on in PM Fraction] source of Blood data Hemoglobi 12.2 - g/dL Normal No February 08 n 16.2 informati 2016 2:25 [Mass/vol on in PM ume] in source Blood data Lymphocyt 0.7 - 4.5 K/mm3 Normal No February 08 es informati 2016 2:25 [#/volume on in PM ] in source Unspecifi data ed specimen by Automated count Lymphocyt 10 - 50.0 % Low No February 08 es informati 2016 2:25 [#/volume on in PM ] in source Unspecifi data ed specimen by Automated count Erythrocy 27 - 31.2 pg High No February 08 te mean informati 2016 2:25 corpuscul on in PM ar source hemoglobi data n [Entitic mass] Erythrocy 31.8 - g/dl Normal No February 08 te mean 35.4 informati 2016 2:25 corpuscul on in PM ar source hemoglobi data n concentra tion [Mass/vol ume] by Automated count Erythrocy 82.2 - fl Normal No February 08 te mean 97.8 informati 2016 2:25 corpuscul on in PM ar volume source [Entitic data volume] by Automated count Monocytes 0.1 - 1.0 K/mm3 Normal No February 08 inform2016 2:25 [#/volume on in PM ] in source Blood by data Automated count Monocytes 1.7 - 9.3 % Low No February 08 /100 informati 2016 2:25 leukocyte on in PM s in source Blood by data Automated count Platelet 7.4 - fl Low No February 08 mean 10.4 informati 2016 2:25 volume on in PM [Entitic source volume] data in Blood by Automated count Platelets 142 - 424 K/mm3 Normal No February 08 informati 2016 2:25 [#/volume on in PM ] in source Blood data Erythrocy 4.2 - 5.4 M/mm3 Normal No February 08 jazzy informati 2016 2:25 [#/volume on in PM ] in source Amniotic data fluid Erythrocy 11.5 - % Normal No February 08 te 17.5 informati 2016 2:25 distribut on in PM ion width source [Entitic data volume] by Automated count Leukocyte 4.8 - K/MM3 Normal No February 08 s 10.8 informati 2016 2:25 [#/volume on in PM ] in source Blood data Differential panel, method unspecified - Observa Value Referen Units Interpr Notes Date tion ce etation Range LYMPH 16 10 - 50 % Normal No February 08 informa 2016 tion in 2:25 PM source data Monocytes 2 - 9 % Low No February 08 /100 informati 2016 2:25 leukocyte on in PM s in source Blood by data Automated count Platele NORMAL No No No No February 08 ts informa informa informa informa 2016 [Presen tion in tion in tion in tion in 2:25 PM ce] in source source source source Blood data data data data by Light microsc opy Neutrophi 42 - 76 % High No February 08 ls informati 2016 2:25 [#/volume on in PM ] in source Blood by data Automated count Erythro NORMAL No No No No February 08 cyte informa informa informa informa 2017 morphol tion in tion in tion in tion in 2:25 PM ogy source source source source finding data data data data [Identi fier] in Blood Cells No #CELLS No No February 08 Counted informati informati informati 2016 2:25 Total [#] on in on in on in PM in Blood source source source data data data Basic metabolic panel in Blood Observa Value Referen Units Interpr Notes Date tion ce etation Range Urea 7 - 18 mg/dL Normal No February 08 nitrogen informati 2016 2:25 [Mass/vol on in PM ume] in source Serum or data Plasma Calcium 8.5 - mg/dL Normal No February 08 [Mass/vol 10.1 informati 2016 2:25 ume] in on in PM Serum or source Plasma data Chloride 98 - 107 mmoL/L Low No February 08 [Moles/vo informati 2016 2:25 lume] in on in PM Serum or source Plasma data Carbon 21.0 - mmoL/L High No February 08 dioxide, 32.0 informati 2016 2:25 total on in PM [Moles/vo source lume] in data Serum or Plasma Creatinin 0.55 - mg/dL Normal No February 08 e 1.02 informati 2016 2:25 [Mass/vol on in PM ume] in source Serum or data Plasma Creatinin 50 - 200 ML/MIN Normal No February 08 e renal informati 2016 2:25 clearance on in PM source predicted data by Cockcroft -Gault formula Estimated 59- ML/MIN No REFERENCE February 08 informati RANGE: 2016 2:25 glomerula on in >60 PM r source ML/MIN/1. filtratio data 73 SQUARE n rate METERSIf (GF this patient is -A merican, then multiply theresult by 1.210. Glucose 74 - 106 mg/dL High No February 08 [Mass/vol informati 2017 2:25 ume] in on in PM Serum or source Plasma data Potassium 3.5 - 5.1 mmoL/L Normal No February 08 informati 2016 2:25 [Moles/vo on in PM lume] in source Serum or data Plasma Sodium 136 - 145 mmoL/L Normal No February 08 [Moles/vo informati 2017 2:25 lume] in on in PM Serum or source Plasma data
== END 2017-04-28 16:56 | disposition home or self-care (01) ==
LOC: ER 13:34
DX: S62.101A Fracture of unspecified carpal bone, right wrist, initial encounter for closed fracture (principal); S83.91XA Sprain of unspecified site of right knee, initial encounter; W01.0XXA Fall on same level from slipping, tripping and stumbling without subsequent striking against object, initial encounter
CPT/HCPCS: J2405

== ENCOUNTER 2017-05-03 10:34 | Day surgery (SDC) | payer BC, MEDICARE ==
[~2017-05-03] VITALS: Ht 152.4 cm; Wt 79.4 kg
[~2017-05-03 10:34] MED LIST changes: +NORCO 325 MG-51 TAB PO
--- NOTE | 2017-05-03 15:09 | RADIOLOGY REPORT PS360 ---
FLUOROSCOPY CHARGE .25 HOUR HISTORY: RIGHT WRIST EXTERNAL FIXATION Patient Age: 56 years: Female Ordering Physician: Saul Fowler MD TECHNIQUE: 3 views of the hand AP and lateral spot views. During ORIF procedure for the distal radial fracture The angulation at the fracture distal radius been corrected with with the fixation device applied. Good angulation on the lateral view as well as good position on the AP view. Current images of limited detail.
--- NOTE | 2017-05-03 15:18 | Anesthesia Record ---
Anesthesia Record Part I Total IV fluids: 2200 EBL (ml): 0 Urine Output: 0 B/P: 100/44 % SaO2: 89 Pulse: 105 Resps: 14 Temp: 98.6 Patient is: Awake, Stable Stable to PACU at: 1515 at 1517
--- NOTE | 2017-05-03 15:19 | Anesthesia Record ---
Anesthesia Record Part II Discharge time: 1545 Destination: Same day surgery PACU nurse assessment review? Yes Patient is: Awake, Stable Anesthesia complications? No at 1517
--- NOTE | 2017-05-03 15:46 | Operative Note ---
Procedure/Operative Record Date of Procedure: 05/03/17 Pre-op diagnosis: Comminuted RIGHT distal radius fracture, intra-articular Post-op diagnosis: Same Procedure performed: Closed reduction and application of external fixator (Ju Pennington) Surgeon: Saul Fowler Anesthesia: Gen. anesthetic Indications: This 56-year-old female presents with a comminuted intra-articular distal radius fracture. Preoperatively, alternatives have been discussed. We have elected for surgical stabilization. This is indicated secondary to the significant displacement, the patient's young age, and her RIGHT handedness. Findings: A closed extremely comminuted distal radius fracture was noted. The articular components of the fracture were noted. Her operative findings agreed with preoperative radiographs and CT scan. Bone quality was satisfactory. Description of procedure: The patient was taken to the operating room placed in the supine position and given a general anesthetic. The RIGHT arm was prepped and draped in the usual sterile fashion. After an appropriate timeout, finger traps applied to the index and thumb and traction and ulnar deviation applied. With traction and a reduction maneuver, we were able to achieve what appeared to be a near anatomic reduction based on fluoroscopic pictures. The patient did appear to have somewhat of a neutral or perhaps slightly dorsiflexed radial tilt. This could not be improved by closed maneuver and it appeared that the patient's anatomy was consistent with pre-existing tilt dorsally as there did not appear to be an area of comminution that needed to be reduced. Nonetheless, this fit very nicely in the acceptable geometry for this age and fracture. We felt this too comminuted to simply plan and application of a volar plate alone was questionable. We do not feel like we could capture the dorsal fragments through volar plate and then a two incision approach would be needed. We elected to proceed with closed reduction and application of external fixator (Ju Pennington). A radial based incision over the index finger metacarpal was made and blunt dissection carried down to the level of bone. An 18-gauge needle was utilized to demarcate the appropriate starting point and angle and the proximal long threaded pin applied using the guide. This was drilled through the index and into the third metacarpal base. We then drilled a more distal pin, again clearing tissue to avoid neurovascular injury. These two pins were placed parallel, the incision irrigated, and closed with 3-0 Vicryl and 3-0 nylon interrupted sutures. The skin was not compromised by pressure against the pins and no relieving incisions were needed.. We then used the guide to select the appropriate starting point on the radius. The radial "bare" spot was identified and an incision made. We dissected through the cutaneous tissues bluntly identifying the superficial radial nerve and protecting it. A large vein was protected as well. We used retractors as needed and elevated the brachial radialis tendon dorsally and placed to more pins parallel using the power lumber driver. We confirmed position of all four pins fluoroscopically and then irrigated and closed the forearm incision as we had done the metacarpal incision. We then applied the external fixator and ensured it it locked appropriately on the pins. The two metacarpal pins were cut to length and pin caps applied on all four pins. We then adjusted the length to allow the distal radius to be brought out to length using ligamentotaxis. We applied a small amount of palmar and ulnar deviation to optimize the reduction. We checked the C-arm shots in AP lateral and oblique planes to confirm optimal reduction had been achieved. We also checked to ensure over distraction had not occurred by observing on over the fracture site but also the carpus. We then applied Xeroform to the incisions and overwrapped using soft roll and an Andrea bandage. Additional soft roll 10-15 layers were placed over the two most proximal pins and several layers of Andrea wrap placed around the external fixture and these pins to help protect the patient should she inadvertently contact herself with these pins by flexing her elbow. The patient was then awakened and transported to the recovery room in satisfactory condition. EBL (ml): 5 Implant: external fixator (Ju WristJack) Complications: None at [id number]
[2017-05-03 17:43] VITALS: BP 109/69
--- NOTE | 2017-05-10 09:38 | RADIOLOGY REPORT PS360 ---
WRIST-3 VIEWS-RT HISTORY: POST-OP EX FIX TO RIGHT WRIST Common duct normal diameter 3 mm at hilum of liver. Patient Age: 56 years: Female Ordering Physician: Saul Fowler MD TECHNIQUE: 3 views right wrist COMPARISON :04/28/2017 right wrist study FINDINGS Operative reduction and fixation procedurefor the distal radial fracture with external fixator applied.: With this 2 screws enter the shaft of the radius as proximal fixation point . 2 screws enter at the second metacarpal as the more distal fixation point. Between the mesentery just above the external fixator device providing distraction. The angulation at the fracture distal radius been corrected with with the externalfixation device applied. Good position on the lateral view as well.. The impaction has been diminished with external fixation. The transverse fracture distal radius which extends to the articular surface of distal radius. Good position congruent alignment appears to be established here at the articular surface. Ulna unremarkable. Carpals unremarkable. Detail. . Borderline to mild ulnar minus anatomy is seen at the right wrist on these images IMPRESSION: Significant improvement in the position and alignment of the distal radial fracture post external fixation
== END 2017-05-03 17:35 | disposition home or self-care (01) ==
LOC: SDC 10:34
PROVIDERS: Orthopaedic Surgery
PROC: 0PSHXZZ Reposition Right Radius, External Approach (ICD-10-PCS; principal; 2017-05-03 12:00)
DX: S52.571A Other intraarticular fracture of lower end of right radius, initial encounter for closed fracture (principal); W01.0XXA Fall on same level from slipping, tripping and stumbling without subsequent striking against object, initial encounter
CPT/HCPCS: J2405

== ENCOUNTER → 2017-05-26 | Outpatient (CLI) | payer BC, MEDICARE ==
--- NOTE | 2017-05-26 14:23 | RADIOLOGY REPORT PS360 ---
WRIST-3 VIEWS-RT HISTORY: Follow-up fracture FU ANAHI KOCH ORDERING PHYSICIAN: Saul Fowler MD PATIENT AGE: 56 years COMPARISON: 05/18/2017 FINDINGS: External fixator device remains present as before stabilizing the comminuted fracture of the distal radius with intra-articular extension. There is good alignment of bony fragments. Fracture lines are somewhat less distinct which may be due to early healing. IMPRESSION: Healing distal radial fracture status post external fixation
== END ==
LOC: RAD 13:01
DX: S52.531D Colles' fracture of right radius, subsequent encounter for closed fracture with routine healing (principal)

== ENCOUNTER → 2017-06-16 | Outpatient (CLI) | payer BC, MEDICARE ==
--- NOTE | 2017-06-16 10:23 | RADIOLOGY REPORT PS360 ---
WRIST-3 VIEWS-RT HISTORY: Follow-up fracture HEALING OF CLOSED COLLES' FX ORDERING PHYSICIAN: Saul Fowler MD PATIENT AGE: 56 years COMPARISON: 05/26/2017 FINDINGS: External fixator device remains present as before stabilizing the comminuted fracture of the distal radius with intra-articular extension. There is good alignment of bony fragments. Fracture lines are somewhat less distinct which consistent with healing. IMPRESSION: Healing distal radial fracture status post external fixation
== END ==
LOC: RAD 08:29
DX: S52.531D Colles' fracture of right radius, subsequent encounter for closed fracture with routine healing (principal)

== ENCOUNTER → 2017-07-28 | Outpatient (CLI) | payer BC, MEDICARE ==
--- NOTE | 2017-07-28 10:10 | RADIOLOGY REPORT PS360 ---
WRIST-3 VIEWS-RT HISTORY: Follow-up fracture CLOSED COLLES FXT RADIUS ORDERING PHYSICIAN: Saul Fowler MD PATIENT AGE: 56 years COMPARISON: 06/16/2017 FINDINGS: External fixator device has been removed with defects in the radius and second metacarpal from the screws. Healing fracture is present involving the distal radius with decreased prominence of the fracture site and sclerosis of the fracture site. There is good alignment. IMPRESSION: 1. Healing distal radial fracture with good alignment. 2. Interval removal of external fixator
== END ==
LOC: RAD 07:57
DX: S52.531D Colles' fracture of right radius, subsequent encounter for closed fracture with routine healing (principal)